=== PATIENT | male | born 1945 | race Two or more races ===

== ENCOUNTER 2018-10-02 11:15 | Outpatient (CLI) | payer OTHER | END 2018-10-02 12:11 | disposition home or self-care (01) | LOC: RAD 501 11:15 | DX: M79.642 Pain in left hand (principal) ==

== ENCOUNTER 2018-10-16 11:15 | Outpatient (CLI) | payer OTHER | END 2018-10-16 11:26 | disposition home or self-care (01) | LOC: LAB 11:15 | DX: R97.20 Elevated prostate specific antigen [PSA] (principal) ==

== ENCOUNTER 2018-10-30 07:19 | Outpatient (CLI) | payer OTHER | END 2018-10-30 08:32 | disposition home or self-care (01) | LOC: SONOGRAMA 07:19 | DX: R97.20 Elevated prostate specific antigen [PSA] (principal) ==

== ENCOUNTER → 2019-04-29 15:06 | Outpatient (CLI) | payer OTHER | END | disposition home or self-care (01) | LOC: RAD 15:06 | DX: R06.02 Shortness of breath (principal); Z87.891 Personal history of nicotine dependence ==

== ENCOUNTER 2019-06-02 09:09 | Outpatient (CLI) | payer OTHER | END 2019-06-02 09:11 | disposition home or self-care (01) | LOC: TOM 09:09 | DX: R91.1 Solitary pulmonary nodule (principal); R06.02 Shortness of breath ==

== ENCOUNTER → 2020-09-21 10:03 | Outpatient (CLI) | payer OTHER ==
[~2020-09-21 10:03] MED LIST: CVS DAILY MULT1 EAC2 PO; FENOFIBRATE160 MG PO; TAMS0.4C
== END | disposition home or self-care (01) ==
LOC: LAB 10:03
PROVIDERS: ATTEND Orthopaedic Surgery Hand Surgery
DX: R05 Cough (principal); Z20.828 Contact with and (suspected) exposure to other viral communicable diseases

== ENCOUNTER 2020-09-28 05:45 | Day surgery (SDC) | payer OTHER ==
[~2020-09-28 05:45] MED LIST changes: -TAMS0.4C
== END 2020-09-28 13:00 | disposition home or self-care (01) ==
LOC: CIR.AMB 05:45
PROVIDERS: ATTEND Orthopaedic Surgery Hand Surgery
DX: M19.042 Primary osteoarthritis, left hand (principal); Z20.828 Contact with and (suspected) exposure to other viral communicable diseases

== ENCOUNTER 2020-09-28 21:13 | Emergency (ER) | payer OTHER ==
[~2020-09-28] VITALS: Ht 152.4 cm; Wt 83.9 kg
== END 2020-09-28 23:20 | disposition home or self-care (01) ==
LOC: ER 21:13
DX: R33.8 Other retention of urine (principal); Z98.890 Other specified postprocedural states

== ENCOUNTER 2020-10-04 16:37 | Emergency (ER) | payer OTHER ==
[~2020-10-04] VITALS: Ht 180.3 cm; Wt 83.9 kg
[2020-10-04] MEDS ORDERED: TAMS0.4C (17:34)
== END 2020-10-04 18:12 | disposition home or self-care (01) ==
LOC: ER 16:37
DX: R33.8 Other retention of urine (principal)

== ENCOUNTER 2020-10-15 09:23 | Outpatient (CLI) | payer OTHER ==
[~2020-10-15 09:23] MED LIST changes: +TAMS0.4C
== END 2020-10-15 09:34 | disposition home or self-care (01) ==
LOC: RAD 09:23
PROVIDERS: ATTEND Urology
DX: R33.8 Other retention of urine (principal); N40.1 Benign prostatic hyperplasia with lower urinary tract symptoms; M79.642 Pain in left hand

== ENCOUNTER 2020-10-21 10:15 | Inpatient (IN) | payer OTHER ==
[~2020-10-21] VITALS: Ht 27.9 cm; Wt 5.0 kg
[2020-10-25] MEDS ORDERED: FINASTERIDE5 MG (13:24)
[2020-10-25] MEDS ORDERED: OMEPRAZOLE20 MG (13:25)
[2020-10-25] MEDS ORDERED: LEVOTHYROXINE25 MC1 (13:25)
[2020-10-25] MEDS ORDERED: METFORMIN HCL500 M4 (13:25)
[2020-10-25] MEDS ORDERED: LOSARTAN POTASS25 MG (13:25)
== END 2020-10-26 13:03 | disposition home or self-care (01) | DRG 714 ==
LOC: ADM 10:15 → SURG 10-25 10:13 → O/R 10-25 10:13 → CIR.AMB 10-25 10:15 → EDSTATUS 10-25 10:15 → SURH 10-25 10:15 → SURG 10-25 15:54
PROVIDERS: ADMIT Urology; ATTEND Urology
PROC: 0VB07ZX Excision of Prostate, Via Natural or Artificial Opening, Diagnostic (ICD-10-PCS; 2020-10-25)
PROC: 0VB07ZZ Excision of Prostate, Via Natural or Artificial Opening (ICD-10-PCS; principal; 2020-10-25 12:00)
DX: N40.1 Benign prostatic hyperplasia with lower urinary tract symptoms (principal); R33.8 Other retention of urine

== ENCOUNTER 2022-10-27 14:39 | Outpatient (CLI) | payer OTHER ==
[~2022-10-27 14:39] MED LIST changes: +FINASTERIDE5 MG; +LEVOTHYROXINE25 MC1; +LOSARTAN POTASS25 MG; +METFORMIN HCL500 M4; +OMEPRAZOLE20 MG
== END 2022-10-27 14:46 | disposition home or self-care (01) ==
LOC: RAD 14:39
PROVIDERS: ATTEND Ophthalmology
DX: Z01.818 Encounter for other preprocedural examination (principal); H25.813 Combined forms of age-related cataract, bilateral

== ENCOUNTER 2022-10-30 13:56 | Outpatient (CLI) | payer OTHER | END 2022-10-30 13:57 | disposition home or self-care (01) | LOC: EKG 13:56 → LAB 13:56 | PROVIDERS: ATTEND Internal Medicine Cardiovascular Disease | DX: I10 Essential (primary) hypertension (principal) ==

== ENCOUNTER → 2023-02-28 10:31 | Outpatient (CLI) | payer OTHER | END | disposition home or self-care (01) | LOC: EKG 10:31 | PROVIDERS: ATTEND Internal Medicine Cardiovascular Disease | DX: J44.9 Chronic obstructive pulmonary disease, unspecified (principal); I10 Essential (primary) hypertension ==

== ENCOUNTER 2023-03-01 07:20 | Outpatient (CLI) | payer OTHER | END 2023-03-01 07:31 | disposition home or self-care (01) | LOC: SONOGRAMA 07:20 | PROVIDERS: ATTEND Internal Medicine Cardiovascular Disease | DX: R10.9 Unspecified abdominal pain (principal) ==

== ENCOUNTER 2023-03-01 08:04 | Outpatient (CLI) | payer OTHER | END 2023-03-01 08:05 | disposition home or self-care (01) | LOC: LAB 08:04 | PROVIDERS: ATTEND Internal Medicine Cardiovascular Disease | DX: R10.9 Unspecified abdominal pain (principal) ==

== ENCOUNTER 2023-05-16 12:09 | Emergency (ER) | payer OTHER ==
[~2023-05-16] VITALS: Ht 180.3 cm; Wt 83.9 kg
== END 2023-05-16 17:49 | disposition home or self-care (01) ==
LOC: ER 12:09
DX: M79.605 Pain in left leg (principal); I99.8 Other disorder of circulatory system; I10 Essential (primary) hypertension; E11.9 Type 2 diabetes mellitus without complications; Z79.84 Long term (current) use of oral hypoglycemic drugs

== ENCOUNTER 2025-02-06 08:36 | Outpatient (CLI) | payer OTHER | END 2025-02-06 08:40 | disposition home or self-care (01) | LOC: RAD 08:36 | PROVIDERS: ATTEND Orthopaedic Surgery | DX: M25.561 Pain in right knee (principal); M25.562 Pain in left knee ==

== ENCOUNTER 2025-05-07 08:26 | Inpatient (IN) | payer OTHER ==
[~2025-05-07] VITALS: Ht 180.3 cm; Wt 88.5 kg
[2025-05-07] MEDS ORDERED: 0.9 % SODIUM CHLORIDE 1,000 ML IV SCH ×2 (08:30→18:00)
--- NOTE | 2025-05-07 08:41 | NUR ---
SE RECIBE PTE AMBULANDO EN COMPANIA DE QUIEN REFIERE PTE TUVO UN SYNCOPE EN MONTOYA OFICINA. SE ROBB SV Y SE DOCUMENTA. SE REALIZA EKG Y SE PRESENTA A .
--- NOTE | 2025-05-07 09:06 | NUR ---
SE ORIENTA PTE SOBRE TX MEDICO Y EL MISMO REFIERE ENTENDER Y ACEPTAR. SE CANALIZA Y SE COLECTAN MUESTRAS DE LAB . SE NOTIFICA ESTUDIO PENDIENTE.
[2025-05-07 09:17] LABS: BASO % 0.5 % (0.1-1.2); EOS # 0.27 (0.04-0.54); EOS % 2.8 % (0.7-7.0); LYMPH # 1.77 (1.18-3.74); LYMPH % 18.2 % (19.3-53.1); MEAN PLATELET VOLUME 8.80 fl (9.4-12.4); MONO # 1.17 (0.24-0.82); MONO % 12.0 % (4.7-12.5); NEUT # 6.41 (1.56-6.13); NEUT % 66.1 % (34.0-71.1); RED CELL DISTRIBUTION WIDTH 13.1 % (11.6-14.4)
[2025-05-07 09:43] LABS: ALT/SGPT 31.0 U/L (12-78); AST/SGOT 19.0 U/L (15-37); BILIRUBIN TOTAL 1.08 mg/dL (0.3-1.2); BUN CREA RATIO 18.0 (7.0-25.0); CREATININE SERUM 1.24 mg/dL (0.70-1.30); GFR 55.81; GLOBULINA 3.3 G/DL (2.4-3.5); GLUCOSE FASTING 129.0 mg/dL (65-100); OSMOLALITY SERUM 284.0 MOSM/KG (275-295)
[2025-05-07 16:45] LABS: URINE APPEARANCE Clear; URINE BILIRRUBIN Negative (NEGATIVE); URINE BLOOD Negative; URINE COLOR Yellow; URINE GLUCOSE Negative (NEGATIVE); URINE KETONE Negative (NEGATIVE); URINE LEUKOCYTE Negative; URINE NITRATE Negative; URINE PROTEIN Negative (NEGATIVE); URINE UROBILINOGEN 1.0 E.U./dl
[2025-05-07 16:46] LABS: URINE EPITHELIAL CELLS 1.9 uL (0.0-38.8)
[2025-05-07 16:50] LABS: URINE BACTERIA 2.3 uL (0.0-1933); URINE CAST 0.29 uL (0.0-1.40); URINE RBC 1.0 uL (0.0-20.8); URINE WBC 0.9 uL (0.0-23.2)
[2025-05-07] MEDS ORDERED: ROSUVASTATIN CALCIUM 10 MG TABLET PO SCH (18:03)
[2025-05-07] MEDS ORDERED: FAMOTIDINE/PF 20 MG in 0.9 % SODIUM CHLORIDE 8 ML IV PUSH SCH (18:03)
[2025-05-07] MEDS ORDERED: ACETAMINOPHEN 500 MG GEL..CAP PO PRN (18:15)
[2025-05-07 18:54] VITALS: BP 124/77; O2SAT 96
[2025-05-07 19:57] LABS: COVID-19 AG NEGATIVE (NEGATIVE)
[2025-05-07 20:00] LABS: D DIMER 4.18 MG/L
[2025-05-07 20:04] LABS: INR 1.0
[2025-05-07 21:33] VITALS: O2SAT 92
[2025-05-07 21:42] VITALS: BP 147/79; O2SAT 97
[2025-05-08] VITALS (7 sets, daily range): BP systolic 119–136; BP diastolic 75–79; O2SAT 93–97
[2025-05-08 07:47] LABS: CHOL HDL RATIO 1.8 (0-5.0); HDL 62.0 mg/dl (40-60); LDL 34.0 mg/dl (0-130); TSH 2.0 uIU/mL (0.358-3.74); VLDL 13.0 (0-39)
[2025-05-08] MEDS ORDERED: ASPIRIN 81 MG TAB.CHEW PO SCH (09:00)
[2025-05-08] MEDS ORDERED: LOSARTAN POTASSIUM 25 MG TABLET PO SCH (09:00)
[2025-05-08] MEDS ORDERED: GUAIFENESIN 200 MG/10 ML BLIST.PACK PO SCH (18:00)
[2025-05-08] MEDS ORDERED: SODIUM CHLORIDE FOR INHALATION 1 VIAL.NEB IH SCH (21:00)
[2025-05-09 00:30] VITALS: O2SAT 90
[2025-05-09 02:24] VITALS: BP 135/74; O2SAT 93
[2025-05-09 06:02] VITALS: O2SAT 89
[2025-05-09 07:30] VITALS: BP 140/91; O2SAT 94
[2025-05-09] MEDS ORDERED: ROSUVASTATIN CALCIUM 20 MG TABLET PO SCH (09:00)
[2025-05-09] MEDS ORDERED: FLUTICASONE PROPIONATE 50 MCG SPRAY NASAL SCH (12:39)
[2025-05-09 14:49] VITALS: O2SAT 95
== END 2025-05-09 15:43 | disposition left against medical advice (07) | DRG 69 ==
LOC: ER 08:26 → MEDI 18:08
PROVIDERS: Emergency Medicine; General Practice; ADMIT Student in an Organized Health Care Education/Training Program; ATTEND Student in an Organized Health Care Education/Training Program
PROC: BW28ZZZ Computerized Tomography (CT Scan) of Head (ICD-10-PCS; principal; 2025-05-07)
PROC: B030ZZZ Magnetic Resonance Imaging (MRI) of Brain (ICD-10-PCS; 2025-05-07)
PROC: B345ZZZ Ultrasonography of Bilateral Common Carotid Arteries (ICD-10-PCS; 2025-05-07)
PROC: B246ZZZ Ultrasonography of Right and Left Heart (ICD-10-PCS; 2025-05-07)
PROC: 4A12X4Z Monitoring of Cardiac Electrical Activity, External Approach (ICD-10-PCS; 2025-05-07)
DX: G45.9 Transient cerebral ischemic attack, unspecified (principal); I63.9 Cerebral infarction, unspecified; N17.8 Other acute kidney failure; I10 Essential (primary) hypertension; R55 Syncope and collapse
CPT/HCPCS: 70544